=== PATIENT | male | born 1960 | race Caucasian/White ===

== ENCOUNTER 2020-08-31 10:08 | Emergency (ER) | payer OTHER ==
[~2020-08-31] VITALS: Ht 182.9 cm; Wt 106.6 kg
[~2020-08-31 10:08] MED LIST: CIPRO500 MG PO; FLAGYL500 MG PO; HYDROCODONE-AP1 EAC6 PO; NAPROSYN500 MG PO; RELPAX40 MG; ROBAXIN500 MG PO; ZOFRAN ODT4 MG PO
[2020-08-31] MEDS ORDERED: FLEXERIL PO (11:35)
[2020-08-31 11:44] VITALS: BP 138/90
== END 2020-08-31 11:46 | disposition home or self-care (01) ==
LOC: M.ERS 10:08
DX: S76.011A Strain of muscle, fascia and tendon of right hip, initial encounter (principal); S16.1XXA Strain of muscle, fascia and tendon at neck level, initial encounter; M25.511 Pain in right shoulder; M54.6 Pain in thoracic spine; Z88.1 Allergy status to other antibiotic agents; Z88.8 Allergy status to other drugs, medicaments and biological substances; X50.9XXA Other and unspecified overexertion or strenuous movements or postures, initial encounter; Y93.89 Activity, other specified; Y92.89 Other specified places as the place of occurrence of the external cause; Y99.8 Other external cause status